=== PATIENT | female | born 2000 | race African-American/Black ===

== ENCOUNTER 2020-04-23 10:27 | Emergency (ER) | payer OTHER, SELFPAY ==
[2020-04-23 10:31] VITALS: BP 92/62; PULSE 62; RESP 16; TEMP 36.4; O2SAT 100
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
== END 2020-04-23 12:07 | disposition home or self-care (01) ==
PROVIDERS: Emergency Provider Emergency Medicine
DX: S01.111A Laceration without foreign body of right eyelid and periocular area, initial encounter (principal); W22.8XXA Striking against or struck by other objects, initial encounter
CPT/HCPCS: 12011; 99282